=== PATIENT | female | born 1945 | race Caucasian/White ===

== ENCOUNTER 2022-05-31 17:45 | Emergency (ER) | payer BC ==
[~2022-05-31] VITALS: Ht 147.3 cm; Wt 56.7 kg
--- NOTE | 2022-05-31 18:05 | NUR ---
EKG DONE AND NOTED BY DR MOURA
[2022-05-31] MEDS ORDERED: LORAZEPAM 0.5 MG TABLET ONE (19:49)
--- NOTE | 2022-05-31 19:59 | NUR ---
LAB AT BEDSIDE
[2022-05-31] MEDS ORDERED: LORAZEPAM 0.5 MG TABLET PO ONE (20:00)
[2022-05-31 20:16] LABS: BASOPHILS # (AUTO) 0.1 K/uL (0.0-0.2); BASOPHILS % (AUTO) 0.5 % (0.0-2.0); EOSINOPHILS % (AUTO) 0.2 % (0.0-6.0); HEMATOCRIT 42 % (33-45); HEMOGLOBIN 14.1 g/dL (11.5-14.8); LYMPHOCYTES # (AUTO) 1.3 K/uL (0.8-4.8); LYMPHOCYTES % (AUTO) 10.8 % (20.0-44.0); MEAN CORPUSCULAR HGB CONC 34 g/dl (31.0-36.0); MEAN CORPUSCULAR VOLUME 90 fL (82-100); MONOCYTES # (AUTO) 0.7 K/uL (0.1-1.30); MONOCYTES % (AUTO) 5.7 % (2.0-12.0); NEUTROPHILS % (AUTO) 82.8 % (43.0-81.0); PLATELET COUNT (AUTO) 329 K/uL (150-450); RED BLOOD CELL COUNT(AUTO) 4.63 MIL/uL (4.0-5.2); WHITE BLOOD COUNT (AUTO) 12.1 K/uL (4.3-11.0)
[2022-05-31 20:28] LABS: CALCIUM, SERUM 9.5 mg/dL (8.5-10.1); CREATININE 0.8 mg/dL (0.6-1.3); POTASSIUM 3.9 mmol/L (3.5-5.1)
[2022-05-31 20:40] LABS: ALBUMIN 3.9 g/dL (3.4-5.0); BILIRUBIN,TOTAL 0.4 mg/dL (0.2-1.0); TOTAL PROTEIN, SERUM 7.8 g/dL (6.4-8.2)
--- NOTE | 2022-05-31 20:54 | NUR ---
UPDATED MIGUEL OCAMPO(DAUGHTER) [phone]
[2022-05-31] MEDS ORDERED: IV NS 0.9% 1,000 ML IV ONE (21:00)
[2022-05-31] MEDS ORDERED: LORAZEPAM INJ 2 MG/ML VIAL IM/IV ONE (22:00)
[2022-05-31] MEDS ORDERED: LORAZEPAM INJ 2 MG/ML VIAL ONE (22:04)
--- NOTE | 2022-06-01 01:45 | NUR ---
PT ACCEPTED TO [facility] BY DR KOLB. ROOM 610-B. # FOR REPORT [phone]. AMBULANCE AUTH#[id number]
--- NOTE | 2022-06-01 01:55 | NUR ---
[facility] SET UP W/ ETA [phone]
[2022-06-01 07:36] VITALS: BP 139/81
--- NOTE | 2022-06-01 08:41 | NUR ---
report given to Kristy SALCEDO to continue care, stable at this time.
--- NOTE | 2022-06-01 08:50 | NUR ---
EMT AT BEDSIDE TO PICKUP PT
--- NOTE | 2022-06-01 08:54 | NUR ---
patient picked up by private ambulance in no disstress going to [facility] room 610-B.
== END 2022-06-01 08:53 | disposition short-term general hospital (02) ==
LOC: ER 17:47
DX: R06.02 Shortness of breath (principal); E87.1 Hypo-osmolality and hyponatremia; F41.9 Anxiety disorder, unspecified; Z20.822 Contact with and (suspected) exposure to COVID-19; E87.8 Other disorders of electrolyte and fluid balance, not elsewhere classified; D72.829 Elevated white blood cell count, unspecified; I10 Essential (primary) hypertension
CPT/HCPCS: 99285; 96374; 71045; 87426; 93005; 85025; 36415; 80053; 84484; 83880; J2060; C9803